=== PATIENT | male | born 1960 | race Caucasian/White ===

== ENCOUNTER 2021-12-14 10:13 | Emergency (ER) | payer OTHER ==
--- NOTE | 2021-12-14 11:36 | XRAY ---
Indication: Pain 2 weeks. No acute injury. Comparison: None 3 view left shoulder demonstrates osteopenia, mild AC degenerative arthropathy, tiny left lung calcified granuloma, and tortuous descending aorta. No other bony, articular, or soft tissue abnormalities.
--- NOTE | 2021-12-14 12:07 | ERPHSYRPT ---
- History of Present Illness Time Seen by Provider: 12/14/21 11:30 Source: patient Exam Limitations: no limitations Patient Subjective Stated Complaint: Left shoulder pain Triage Nursing Assessment: Patient ambulated back to ED and transferred self to bed. Patient A+Ox 3. Patient's skin pink, warm and dry. Patient complains of left shoulder pain 5/10 that started 3 weeks ago. Patient denies injury or trauma to area. No bruising or visible injuries noted. Physician History: Patient is a 61-year-old male presents to our ED with complaints of left shoulder pain. Shoulder pain has been ongoing for approximately 3 weeks. 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 No trauma. No neck pain. No upper extremity numbness tingling or weakness. Pain is localized. No radiation. Pain worse with movement and palpation. Pain improved with rest. Patient voices no other complaints or concerns at this time. Portions of this note were created with voice recognition technology. There may be grammatical, spelling, punctuation or sound alike errors Occurred: other (3 weeks) Method of Injury: unknown Quality: intermittent Severity of Pain-Max: moderate Severity of Pain-Current: mild Extremities Pain Location: shoulder: left Modifying Factors: Improves With: movement Associated Symptoms: none Allergies/Adverse Reactions: No Known Drug Allergies Allergy (Unverified 12/14/21 11:12) Home Medications: No Reportable Medications [No Reported Medications] 12/14/21 [History] Hx Influenza Vaccination/Date Given: No Hx Pneumococcal Vaccination/Date Given: No Immunizations Up to Date: Yes Travel Risk - International Travel Have you traveled outside of the country in past 3 weeks: No - Coronavirus Screening Are you exhibiting any of the following symptoms?: No Close contact with a COVID-19 positive Pt in past 14-21 Days: No - Vaccine Status Have you recieved a Covid-19 vaccination: No - Review of Systems Constitutional: No Symptoms, No Fever, No Chills Eyes: No Symptoms Ears, Nose, & Throat: No Symptoms Respiratory: No Symptoms, No Cough, No Dyspnea Cardiac: No Symptoms, No Chest Pain, No Edema, No Syncope Abdominal/Gastrointestinal: No Symptoms, No Abdominal Pain, No Nausea, No Vomiting, No Diarrhea Genitourinary Symptoms: No Symptoms, Penile Discharge, No Dysuria Musculoskeletal: No Back Pain, No Neck Pain Skin: No Symptoms, No Rash Neurological: No Symptoms, No Dizziness, No Focal Weakness, No Sensory Changes Psychological: No Symptoms Endocrine: No Symptoms Hematologic/Lymphatic: No Symptoms Immunological/Allergic: No Symptoms All Other Systems: Reviewed and Negative - Past Medical History Pertinent Past Medical History: Yes Neurological History: No Pertinent History ENT History: No Pertinent History Cardiac History: Hypertension Respiratory History: No Pertinent History Endocrine Medical History: Diabetes Type II Musculoskeletal History: No Pertinent History GI Medical History: No Pertinent History History: No Pertinent History Psycho-Social History: No Pertinent History Male Reproductive Disorders: No Pertinent History - Past Surgical History Past Surgical History: No Neuro Surgical History: No Pertinent History Cardiac: No Pertinent History Respiratory: No Pertinent History Gastrointestinal: No Pertinent History Genitourinary: No Pertinent History Musculoskeletal: No Pertinent History Male Surgical History: No Pertinent History - Social History Smoking Status: Current every day smoker How long have you smoked: years Exposure to second hand smoke: Yes Drug Use: none Patient Lives Alone: No - Nursing Vital Signs Nursing Vital Signs: Initial Vital Signs Temperature 97.6 F 12/14/21 11:14 Pulse Rate 88 12/14/21 11:14 Respiratory Rate 18 12/14/21 11:14 Blood Pressure 175/98 12/14/21 11:14 O2 Sat by Pulse Oximetry 97 12/14/21 11:14 Pain Scale Pain Intensity 5 - Physical Exam General Appearance: no apparent distress, alert Eyes, Ears, Nose, Throat Exam: moist mucous membranes Neck Exam: non-tender, supple Cardiovascular/Respiratory Exam: chest non-tender, normal breath sounds, regular rate/rhythm, no respiratory distress Abdominal Exam: non-tender, No guarding Back Exam: normal inspection, No vertebral tenderness Shoulder Exam: normal inspection, soft tissue tenderness Elbow/Forearm Exam: normal inspection Wrist Exam: normal inspection Hand Exam: normal inspection Neuro/Tendon Exam: normal sensation, normal motor functions Mental Status Exam: alert, oriented x 3, cooperative Skin Exam: normal color, warm, dry SpO2 Interpretation: normal SpO2: 97 O2 Delivery: Room Air - Course Nursing assessment & vital signs reviewed: Yes - Radiology Exams Shoulder X-ray Interpretation: Interpreted by me Ordered Tests: Active Orders 24 hr Category Date Time Status SHOULDER Stat Exams 12/14/21 11:26 Completed - Progress Progress: improved Progress Note: Patient reassessed. Patient is now comfortable. A sling was applied to the lef t shoulder. Patient received IM Toradol. A referral to the orthopedic clinic was completed. Patient will follow up tomorrow as discussed. X-ray negative for fracture dislocation. However there was some AC arthritis observed. No indication for further work-up at this time. The involved extremity is neurovascular intact distally. Patient is a local owner operator truck driver. This required turning a large steering wheel against resistance. Patient's shoulder pain may partially be due to overutilization. Portions of this note were created with voice recognition technology. There may be grammatical, spelling, punctuation or sound alike errors 12/14/21 12:40 Counseled pt/family regarding: diagnosis, need for follow-up, rad results - Departure Departure Disposition: Home Clinical Impression: Shoulder pain, left, Osteopenia determined by x-ray, AC (acromioclavicular) arthritis, left lung granuloma Condition: Stable Critical Care Time: No Referrals: LUIS RODRIGUEZ [Primary Care Provider] - Follow up/PCP as directed Additional Instructions: Discharge/Care Plan JOSE JUANSHAWNA was seen on 12/14/21 in the Emergency Room. The patient was counseled regarding Diagnosis,Lab results, Imaging studies, need for follow up and when to return to the Emergency Room. Prescriptions given: Discharge Note I have spoken with the patient and/or caregivers. I have explained the patient's condition, diagnosis and treatment plan based on the information available to me at this time. I have answered the patient's and/or caregiver's questions and addressed any concerns. The patient and/or caregivers have as good understanding of the patient's diagnosis, condition and treatment plan as can be expected at this point. The vital signs have been stable. The patient's condition is stable and appropriate for discharge from the emergency department. The patient will pursue further outpatient evaluation with the primary care physician or other designated or consulting physician as outlined in the discharge instructions. The patient and/or caregivers are agreeable to this plan of care and follow-up instructions have been explained in detail. The patient and/or caregivers have received these instruction. The patient/and or caregivers are aware that any significant change in condition or worsening of symptoms should prompt an immediate return to this or the closest emergency department or call 911. Outpatient Orders: Ortho Referral Time Frame: 1 Day, Facility: [facility]osp, Location: ORTHO CLINIC
[2021-12-14] MEDS ORDERED: TORAdol 30 mg Injection IM ONE (12:21)
[2021-12-14 12:24] VITALS: BP 168/90; PULSE 90
[2021-12-14] MEDS ORDERED: TORAdol 30 mg Injection ONE (12:24)
[2021-12-14 12:41] VITALS: O2SAT 97
== END 2021-12-14 12:53 | disposition home or self-care (01) ==
LOC: ED 10:13
DX: M19.012 Primary osteoarthritis, left shoulder (principal); M25.512 Pain in left shoulder; M85.812 Other specified disorders of bone density and structure, left shoulder; J84.10 Pulmonary fibrosis, unspecified; I10 Essential (primary) hypertension; E11.9 Type 2 diabetes mellitus without complications; Z72.0 Tobacco use; Z28.310 Unvaccinated for COVID-19
CPT/HCPCS: 73030; 96372; 99283; J1885

== ENCOUNTER 2024-02-13 11:27 | Emergency (ER) | payer OTHER ==
--- NOTE | 2024-02-13 11:37 | ERPHSYRPT ---
- History of Present Illness Time Seen by Provider: 02/13/24 11:37 Source: patient, family Exam Limitations: no limitations Physician History: This is a an obese 63-year-old white male patient of Dr. Palafox who presents to the emergency department by private vehicle escorted by his significant other with the complaint of painful breathing/chest pain. He was recently diagnosed with pneumonia and spent the last week and [facility] at [facility]. He was discharged to home with a prescription of Augmentin. He states he is just not getting any better. Patient has a history of diabetes, coronary artery disease, obesity and chronic atrial fibrillation on diltiazem and Eliquis. He has not had a fever that has been measured. Timing/Duration: day(s) (Several days), worse Severity: moderate Allergies/Adverse Reactions: No Known Drug Allergies Allergy (Verified 02/13/24 11:35) Home Medications: Amoxicillin/Potassium Clav [Amox Tr-K Clv 875-125 mg Tab] 1 each PO BID 02/13/24 [History] Apixaban [Eliquis] 5 mg PO BID 02/13/24 [History] Atorvastatin Calcium 10 mg PO DAILY 02/13/24 [History] Empagliflozin [Jardiance] 10 mg PO DAILY 02/13/24 [History] Glimepiride 2 mg [Amaryl 2 MG] 2 mg PO DAILY 02/13/24 [History] Metformin HCl 500 mg [Glucophage 500 MG] 1,000 mg PO BIDWM 02/13/24 [History] dilTIAZem HCL [Diltiazem ER] 360 mg PO DAILY 02/13/24 [History] Hx Influenza Vaccination/Date Given: No Hx Pneumococcal Vaccination/Date Given: No Travel Risk - International Travel Have you traveled outside of the country in past 3 weeks: No - Emerging Infectious Disease Are you exhibiting symptoms associated with any current EIDs: Yes Symptoms: Shortness of Breath (Painful breathing) - Review of Systems Constitutional: No Symptoms Eyes: No Symptoms Ears, Nose, & Throat: No Symptoms Cardiac: Chest Pain (Painful respirations) Abdominal/Gastrointestinal: No Symptoms Genitourinary Symptoms: No Symptoms Musculoskeletal: No Symptoms Skin: No Symptoms Neurological: No Symptoms Psychological: No Symptoms Endocrine: No Symptoms Hematologic/Lymphatic: No Symptoms Immunological/Allergic: No Symptoms All Other Systems: Reviewed and Negative - Past Medical History Pertinent Past Medical History: Yes Neurological History: No Pertinent History ENT History: No Pertinent History Cardiac History: Hypertension Respiratory History: No Pertinent History Endocrine Medical History: Diabetes Type II Musculoskeletal History: No Pertinent History GI Medical History: No Pertinent History History: No Pertinent History Psycho-Social History: No Pertinent History Male Reproductive Disorders: No Pertinent History - Past Surgical History Past Surgical History: No Neuro Surgical History: No Pertinent History Cardiac: No Pertinent History Respiratory: No Pertinent History Gastrointestinal: No Pertinent History Genitourinary: No Pertinent History Musculoskeletal: No Pertinent History Male Surgical History: No Pertinent History - Social History Smoking Status: Current every day smoker How long have you smoked: years Exposure to second hand smoke: Yes Drug Use: none Patient Lives Alone: No - Nursing Vital Signs Nursing Vital Signs: Initial Vital Signs Pulse Rate 99 H 02/13/24 11:30 Respiratory Rate 16 02/13/24 11:30 Blood Pressure 132/87 02/13/24 11:30 O2 Sat by Pulse Oximetry 93 L 02/13/24 11:30 Pain Scale Pain Intensity 3 - Physical Exam General Appearance: no apparent distress, alert, anxiety, obese Eye Exam: PERRL/EOMI, eyes nml inspection Ears, Nose, Throat Exam: normal ENT inspection, moist mucous membranes Neck Exam: normal inspection, non-tender, supple, full range of motion Respiratory Exam: normal breath sounds, lungs clear, airway intact, No chest tenderness, No respiratory distress, No wheezing Cardiovascular Exam: irregular Gastrointestinal/Abdomen Exam: soft, normal bowel sounds, No tenderness Rectal Exam: not done Back Exam: normal inspection, normal range of motion, No CVA tenderness, No vertebral tenderness Extremity Exam: normal inspection, normal range of motion, pelvis stable Neurologic Exam: alert, oriented x 3, cooperative, nutrition aides teacher II-XII nml as tested, nml cerebellar function, nml station & gait, sensation nml Skin Exam: normal color, warm, dry Lymphatic Exam: No adenopathy SpO2 Interpretation: normal O2 Delivery: Room Air - Course Nursing assessment & vital signs reviewed: Yes EKG Interpreted by Me: RATE (93), A-fib, NORMAL AXIS, NORMAL INTERVALS, NORMAL QRS, Other (No acute ischemia on today's twelve-lead EKG. QTc is 438) Ordered Tests: Active Orders 24 hr Category Date Time Status EKG-ER Only STAT Care 02/13/24 11:38 Active IV Insertion STAT Care 02/13/24 11:38 Active Pulse Oximetry (ED) STAT Care 02/13/24 11:38 Active CHEST WITHOUT CONTRAST [CT] Stat Exams 02/13/24 11:38 Completed BLOOD CULTURE Stat Lab 02/13/24 12:02 Received CBC W DIFF Stat Lab 02/13/24 11:54 Completed CMP Stat Lab 02/13/24 11:54 Completed Lactic Acid Stat Lab 02/13/24 11:43 Completed Lactic Acid Stat Lab 02/13/24 13:47 Received MAGNESIUM Stat Lab 02/13/24 11:54 Completed NT PRO BNPII Stat Lab 02/13/24 11:54 Completed TROPONIN Q4H Lab 02/13/24 11:54 Completed TROPONIN Q4H Lab 02/13/24 14:30 Completed TROPONIN Q4H Lab 02/13/24 19:45 Ordered Medication Summary Discontinued Medications Generic Name Dose Route Start Last Admin Trade Name Freq PRN Reason Stop Dose Admin Furosemide 40 mg 02/13/24 13:28 02/13/24 13:33 Furosemide 40 Mg/4 Ml Vial IV 02/13/24 13:29 40 mg STAT ONE Administration Furosemide Confirm 02/13/24 13:32 Furosemide 40 Mg/4 Ml Vial Administered 02/13/24 13:33 Dose 40 mg .ROUTE .STK-MED ONE Sodium Chloride 500 mls @ 500 mls/hr 02/13/24 12:55 02/13/24 14:22 Sodium Chloride 0.9% 500 Ml IV 02/13/24 13:54 Infused .Q1H ONE Infusion Sodium Chloride Confirm 02/13/24 12:59 Sodium Chloride 0.9% 500 Ml Administered 02/13/24 13:00 Dose 500 mls @ ud IV .STK-MED ONE Lab/Rad Data: Laboratory Result Diagrams 02/13/24 11:54 02/13/24 11:54 Laboratory Results 02/13/24 02/13/24 02/13/24 Range/Units 14:30 11:54 11:54 WBC (4.23-9.07) x10^3/uL RBC (4.63-6.08) x10^6/uL Hgb (13.7-17.5) g/dL Hct (40.1-51.0) % MCV (79.0-92.2) fL MCH (25.7-32.2) pg MCHC (32.3-36.5) g/dL RDW (11.6-14.4) % Plt Count (163-337) x10^3/uL MPV (9.4-12.4) fL Gran % (34.0-67.9) % Immature Gran % (Auto) (0.001-0.429) % Nucleat RBC Rel Count (0.00-0.2) % Eos # (Auto) (0.04-0.54) x10^3/uL Immature Gran # (Auto) (0.001-0.031) x10^3u/L Absolute Lymphs (auto) (1.32-3.57) x10^3/uL Absolute Monos (auto) (0.30-0.82) x10^3/uL Absolute Nucleated RBC (0.00-0.012) x10^3u/L Lymphocytes % (21.8-53.1) % Monocytes % (5.3-12.2) % Eosinophils % (0.8-7.0) % Basophils % (0.2-1.2) % Absolute Granulocytes (1.78-5.38) x10^3/uL Basophils # (0.01-0.08) x10^3/uL Sodium (135-145) mmol/L Potassium (3.5-5.1) mmol/L Chloride (98-107) mmol/L Carbon Dioxide (22-30) mmol/L Anion Gap (5-15) MEQ/L BUN (9-20) mg/dL Creatinine (0.66-1.25) mg/dL Estimated GFR ML/MIN Glucose (74-106) mg/dL Lactic Acid (0.4-2.0) Calcium (8.4-10.2) mg/dL Magnesium (1.6-2.3) mg/dL Total Bilirubin (0.2-1.3) mg/dL AST (17-59) U/L ALT (0-50) U/L Alkaline Phosphatase (38-126) U/L Troponin I < 0.012 < 0.012 (0.000-0.033) ng/mL NT-Pro-B Natriuret Pep (<300) pg/mL Serum Total Protein (6.3-8.2) g/dL Albumin (3.5-5.0) g/dL Influenza Type A Ag NEGATIVE (NEGATIVE) Influenza Type B Ag NEGATIVE (NEGATIVE) RSV (PCR) NEGATIVE (NEGATIVE) SARS-CoV-2 (PCR) NEGATIVE (NEGATIVE) 02/13/24 02/13/24 02/13/24 Range/Units 11:54 11:54 11:43 WBC 16.2 H (4.23-9.07) x10^3/uL RBC 5.53 (4.63-6.08) x10^6/uL Hgb 15.8 (13.7-17.5) g/dL Hct 47.0 (40.1-51.0) % MCV 85.0 (79.0-92.2) fL MCH 28.6 (25.7-32.2) pg MCHC 33.6 (32.3-36.5) g/dL RDW 13.3 (11.6-14.4) % Plt Count 373 H (163-337) x10^3/uL MPV 10.6 (9.4-12.4) fL Gran % 68.6 H (34.0-67.9) % Immature Gran % (Auto) 0.6 H (0.001-0.429) % Nucleat RBC Rel Count 0.0 (0.00-0.2) % Eos # (Auto) 0.28 (0.04-0.54) x10^3/uL Immature Gran # (Auto) 0.10 H (0.001-0.031) x10^3u/L Absolute Lymphs (auto) 3.13 (1.32-3.57) x10^3/uL Absolute Monos (auto) 1.51 H (0.30-0.82) x10^3/uL Absolute Nucleated RBC 0.00 (0.00-0.012) x10^3u/L Lymphocytes % 19.3 L (21.8-53.1) % Monocytes % 9.3 (5.3-12.2) % Eosinophils % 1.7 (0.8-7.0) % Basophils % 0.5 (0.2-1.2) % Absolute Granulocytes 11.11 H (1.78-5.38) x10^3/uL Basophils # 0.08 (0.01-0.08) x10^3/uL Sodium 137 (135-145) mmol/L Potassium 4.6 (3.5-5.1) mmol/L Chloride 106 (98-107) mmol/L Carbon Dioxide 20 L (22-30) mmol/L Anion Gap 16.0 H (5-15) MEQ/L BUN 19 (9-20) mg/dL Creatinine 0.71 (0.66-1.25) mg/dL Estimated GFR 102.5 ML/MIN Glucose 186 H (74-106) mg/dL Lactic Acid 2.2 H (0.4-2.0) Calcium 9.2 (8.4-10.2) mg/dL Magnesium 2.1 (1.6-2.3) mg/dL Total Bilirubin 0.70 (0.2-1.3) mg/dL AST 28 (17-59) U/L ALT 25 (0-50) U/L Alkaline Phosphatase 46 (38-126) U/L Troponin I (0.000-0.033) ng/mL NT-Pro-B Natriuret Pep 2260 (<300) pg/mL Serum Total Protein 6.3 (6.3-8.2) g/dL Albumin 3.5 (3.5-5.0) g/dL Influenza Type A Ag (NEGATIVE) Influenza Type B Ag (NEGATIVE) RSV (PCR) (NEGATIVE) SARS-CoV-2 (PCR) (NEGATIVE) - Progress Progress Note: 02/13/24 11:44 Medical decision making and the assignment of moderate complexity to this patient's medical issue today is based on review of the patient's past medical history, review of the patient's medication list, reviewed patient drug allergy list, history present illness and physical findings on examination. The workup in this patient includes placement of intravenous line, CBC, CMP, magnesium level, blood cultures, viral studies, CT scan of the chest without contrast twelve-lead EKG and troponin level. Differential diagnosis includes myocardial infarction, chest wall pain, pneumonia, viral illness, other arrhythmia. I did not order D-dimer as this patient is anticoagulated on Eliquis. 02/13/24 13:26 I interpreted the patient's laboratory data results. The laboratory data results show the patient having a leukocytosis and a mildly elevated lactic acid. We will provide the patient with a bolus of crystalloid solution intravenously. No other acute or emergent findings based on the laboratory data results. The CT scan of the chest without contrast shows small pericardial effusion/thickening. Echocardiogram if clinically indicated. There is mild diffuse pulmonary emphysema. There is moderate right with minimal left base hemphill bsegmental atelectasis/scarring. There is a small hiatal hernia. There is no evidence of infiltrate or effusions. 02/13/24 14:33 I reexamined the patient. Patient states he is feeling better and he states he is "ready to get out of here". I asked him to wait for the repeat twelve-lead EKG and troponin level. If these show nothing acute or emergent, we will discharge him from the emergency department and he will follow-up at his scheduled appointment with his primary care provider. 02/13/24 15:14 I interpreted the patient's repeat troponin level and this is again normal. I also interpreted the repeat twelve-lead EKG performed at 1436 on 02/13/2024. Patient's heart rate is 84 bpm and is in normal sinus rhythm. QTc is 425. There is no evidence of any acute ischemia on this repeat twelve-lead EKG. Counseled pt/family regarding: lab results, diagnosis, rad results Medical Desision Making - Independent Historian Additional History obtained from: Spouse - Diagnostic Testing Diagnostic test were ordered, analyzed, and reviewed by me: Yes Radiological Interpretation: Reviewed by me, Teleradiologist Report - Risk of complications Low Risk: Low risk of morbidity from additional dx testing or treatment - Departure Departure Disposition: Home Clinical Impression: Leukocytosis Condition: Stable Critical Care Time: No Referrals: SAJAN PALAFOX MD [Primary Care Provider] - Follow up/PCP as directed Additional Instructions: Drink plenty of fluids. Take your medications including your antibiotic as prescribed. After discharge from the emergency department today, proceed to your primary care providers schedule appointment time.
[2024-02-13 11:50] VITALS: TEMP 98.6
[2024-02-13 12:18] LABS: Absolute Neutrophil Ct (ANC) 11.11 x10^3/uL (1.78-5.38); BASOPHIL % 0.5 % (0.2-1.2); Basophil (Absolute #) 0.08 x10^3/uL (0.01-0.08); Eosinophil % 1.7 % (0.8-7.0); Eosinophil (Absolute #) 0.28 x10^3/uL (0.04-0.54); Hemoglobin 15.8 g/dL (13.7-17.5); IMMATURE GRAN % 0.6 % (0.001-0.429); Lymphocyte (Absolute #) 3.13 x10^3/uL (1.32-3.57); Lymphocytes % 19.3 % (21.8-53.1); Mean Corpuscular Hemoglobin 28.6 pg (25.7-32.2); Mean Corpuscular Hgb Concent. 33.6 g/dL (32.3-36.5); Mean Platelet Volume 10.6 fL (9.4-12.4); Monocyte (Absolute #) 1.51 x10^3/uL (0.30-0.82); Monocytes % 9.3 % (5.3-12.2); Neutrophil % 68.6 % (34.0-67.9); Platelet Count 373 x10^3/uL (163-337); Red Blood Count 5.53 x10^6/uL (4.63-6.08); Red Cell Distribution Width 13.3 % (11.6-14.4); White Blood Count 16.2 x10^3/uL (4.23-9.07)
[2024-02-13 12:44] LABS: ALBUMIN 3.5 g/dL (3.5-5.0); BILIRUBIN,TOTAL 0.7 mg/dL (0.2-1.3); Calcium 9.2 mg/dL (8.4-10.2); Creatinine 1 0.71 mg/dL (0.66-1.25); EST GLOMERULAR FILTRATION RATE 102.5 ML/MIN; MAGNESIUM 2.1 mg/dL (1.6-2.3); Potassium 4.6 mmol/L (3.5-5.1); Total Protein 6.3 g/dL (6.3-8.2)
[2024-02-13] MEDS ORDERED: Sodium Chloride 0.9% 500 ML 500 ML IV ONE (12:59)
[2024-02-13] MEDS: Sodium Chloride 0.9% 500 ML 500 ML IV ONE (12:59)
[2024-02-13 13:02] LABS: INFLUENZA A NEGATIVE (NEGATIVE); INFLUENZA B NEGATIVE (NEGATIVE); RESPIRATORY SYNCTIAL VIRUS NEGATIVE (NEGATIVE); SARS-CoV-2 Xpert Express NEGATIVE (NEGATIVE)
--- NOTE | 2024-02-13 13:05 | XRAY ---
Indication: Painful breathing. Multiple contiguous axial images obtained through the chest without contrast. Comparison: None Lungs demonstrate mild diffuse pulmonary emphysema and moderate right and minimal left base subsegmental atelectasis/scarring. Small lateral left lower lobe subpleural calcified granuloma. No infiltrate or effusion. Heart not enlarged with small pericardial effusion/thickening. Aorta minimally arteriosclerotic without aneurysm. Tiny mediastinal and bilateral hilar calcified nodes. Small hiatal hernia. Bony thorax intact with minimal degenerative changes throughout the spine and tiny T7-T10 Schmorl nodes. Limited upper abdomen demonstrates 9 mm left lobe hepatic cyst, nonobstructing left renal punctate calculus, incompletely visualized 1.8 cm left mid renal exophytic cyst, and tiny hepatic/splenic calcified granulomas. Impression: 1. Small pericardial effusion/thickening. Echocardiogram may yield further information if clinically warranted. 2. Chronic findings including pulmonary emphysema, atelectasis/scarring, arteriosclerotic disease, hiatal hernia, chronic bony findings, hepatic cyst, incompletely visualized right renal cyst, left renal punctate calculus, chronic bony findings, and old granulomatous disease.
[2024-02-13] MEDS ORDERED: Lasix 40 MG/4 ML ONE (13:32)
[2024-02-13] MEDS: Lasix 40 MG/4 ML IV ONE (13:33)
[2024-02-13 15:05] VITALS: BP 111/64; PULSE 85; RESP 22; O2SAT 89
== END 2024-02-13 15:18 | disposition home or self-care (01) ==
LOC: ED 11:27
DX: D72.829 Elevated white blood cell count, unspecified (principal); R07.9 Chest pain, unspecified; R06.00 Dyspnea, unspecified; E11.9 Type 2 diabetes mellitus without complications; I10 Essential (primary) hypertension; Z79.01 Long term (current) use of anticoagulants; Z79.84 Long term (current) use of oral hypoglycemic drugs; Z79.899 Other long term (current) drug therapy; Z72.0 Tobacco use
CPT/HCPCS: 0241U; 36000; 36415; 71250; 80053; 83605; 83735; 83880; 84484; 85025; 87040; 93005; 94760; 96374; 99284; J1940

== ENCOUNTER 2024-07-19 18:39 | Emergency (ER) | payer MEDICARE, OTHER ==
[2024-07-19 18:55] VITALS: TEMP 98
--- NOTE | 2024-07-19 19:36 | ERPHSYRPT ---
- History of Present Illness Time Seen by Provider: 07/19/24 19:25 Historian: patient, other (significant other) Patient Subjective Stated Complaint: C/O pain to right mid back for a few weeks. Patient states he wants to get it checked out before he starts his new job on Saturday and thought he would just have it checked out here tonight while his girlfriend was being seen in the ER. Triage Nursing Assessment: Patient ambulated back to ER. He is alert and oriented. No SOB. NO bruising to reported area of pain but is tender to touch. GREGORY WNL. SKin tone normal. Physician History: Pt states for the past 3 weeks he has had constant achy 7/10 left upper anterior chest pain radiating to the left scapula; right lateral rib pain for the past 3 days after bending over a metal bar in his shed lifting something. Pt denies shortness of air, fever, abdominal pain, nausea, vomiting, diarrhea. Aspirin Treatment Today: 81 mg x 4, provided by ED Allergies/Adverse Reactions: No Known Drug Allergies Allergy (Verified 07/19/24 18:45) Home Medications: Amoxicillin/Potassium Clav [Amox Tr-K Clv 875-125 mg Tab] 1 each PO BID 02/13/24 [History] Apixaban [Eliquis] 5 mg PO BID 02/13/24 [History] Atorvastatin Calcium 10 mg PO DAILY 02/13/24 [History] Empagliflozin [Jardiance] 10 mg PO DAILY 02/13/24 [History] Glimepiride 2 mg [Amaryl 2 MG] 2 mg PO DAILY 02/13/24 [History] Metformin HCl 500 mg [Glucophage 500 MG] 1,000 mg PO BIDWM 02/13/24 [History] dilTIAZem HCL [Diltiazem ER] 360 mg PO DAILY 02/13/24 [History] Hx Tetanus, Diphtheria Vaccination/Date Given: Yes Hx Influenza Vaccination/Date Given: No Hx Pneumococcal Vaccination/Date Given: No Immunizations Up to Date: Yes Travel Risk - International Travel Have you traveled outside of the country in past 3 weeks: No - Emerging Infectious Disease Are you exhibiting symptoms associated with any current EIDs: No Symptoms: Shortness of Breath (Painful breathing) Comment: lung pain, pneumonia - Review of Systems Constitutional: No Fever Ears, Nose, & Throat: No Throat Pain Respiratory: No Dyspnea Cardiac: Chest Pain Abdominal/Gastrointestinal: No Abdominal Pain, No Nausea, No Vomiting, No Diarrhea Musculoskeletal: Back Pain Neurological: No Headache - Past Medical History Pertinent Past Medical History: Yes Neurological History: No Pertinent History ENT History: No Pertinent History Cardiac History: Hypertension Respiratory History: No Pertinent History Endocrine Medical History: Diabetes Type II Musculoskeletal History: No Pertinent History GI Medical History: No Pertinent History History: No Pertinent History Psycho-Social History: No Pertinent History Male Reproductive Disorders: No Pertinent History - Past Surgical History Past Surgical History: Yes Neuro Surgical History: No Pertinent History Cardiac: No Pertinent History Respiratory: No Pertinent History Gastrointestinal: No Pertinent History Genitourinary: No Pertinent History Musculoskeletal: No Pertinent History Male Surgical History: No Pertinent History - Social History Smoking Status: Current every day smoker How long have you smoked: years Exposure to second hand smoke: Yes Drug Use: methamphetamines - Social Determinants of Health Will the patient participate in the screening: Declined to provide - Nursing Vital Signs Nursing Vital Signs: Initial Vital Signs Temperature 98 F 07/19/24 18:47 Pulse Rate 94 H 07/19/24 18:47 Respiratory Rate 18 07/19/24 18:47 Blood Pressure 165/103 07/19/24 18:47 O2 Sat by Pulse Oximetry 96 07/19/24 18:47 Pain Scale Pain Intensity [] 6 Pain Intensity 6 - Physical Exam General Appearance: alert Eye Exam: PERRL/EOMI Ears, Nose, Throat Exam: TMs normal, pharynx normal Neck Exam: normal inspection Respiratory Exam: chest tenderness (mild tenderness over right lower lateral ribs without crepitus ), lungs clear, airway intact Cardiovascular Exam: normal heart sounds Gastrointestinal/Abdomen Exam: normal bowel sounds, No tenderness Back Exam: normal inspection Neurologic Exam: alert, cooperative Skin Exam: warm, dry SpO2 Interpretation: normal SpO2: 96 O2 Delivery: Room Air - Course Nursing assessment & vital signs reviewed: Yes EKG Interpreted by Me: RATE (88), Sinus Rhythm, NORMAL AXIS, Other (QTc = 433) - CT Exams Chest CT Interpretation: Tele-radiologist Report (See rest of report.), No PE Ordered Tests: Active Orders 24 hr Category Date Time Status Machine Room Engineer STAT Care 07/19/24 19:41 Active EKG-ER Only STAT Care 07/19/24 19:41 Active Pulse Oximetry (ED) STAT Care 07/19/24 19:41 Active CHEST WITH CONTRAST [CT] Stat Exams 07/19/24 21:18 Completed AMYLASE Stat Lab 07/19/24 19:40 Completed CBC W DIFF Stat Lab 07/19/24 19:40 Completed CMP Stat Lab 07/19/24 19:40 Completed LIPASE Stat Lab 07/19/24 19:40 Completed MAGNESIUM Stat Lab 07/19/24 19:40 Completed TROPONIN Q4H Lab 07/19/24 19:45 Completed TROPONIN Q4H Lab 07/19/24 23:45 Ordered TROPONIN Q4H Lab 07/20/24 03:45 Ordered UA W/RFX UR CULTURE Stat Lab 07/19/24 21:00 Completed Urine Triage Profile Stat Lab 07/19/24 21:00 Completed Medication Summary Generic Name Dose Route Start Last Admin Trade Name Freq PRN Reason Stop Dose Admin Sodium Chloride 1,000 mls @ 100 mls/hr 07/19/24 19:45 07/19/24 19:44 Sodium Chloride 0.9% 1000 Ml IV 08/18/24 19:44 100 mls/hr .Q10H FLAKITO Administration Discontinued Medications Generic Name Dose Route Start Last Admin Trade Name Freq PRN Reason Stop Dose Admin Morphine Sulfate 2 mg 07/19/24 19:40 07/19/24 19:52 Morphine Sulfate 2 Mg/Ml Inj IV 07/19/24 19:41 2 mg STAT ONE Administration Morphine Sulfate Confirm 07/19/24 19:43 Morphine Sulfate 2 Mg/Ml Inj Administered 07/19/24 19:44 Dose 2 mg .ROUTE .STK-MED ONE Ondansetron HCl 4 mg 07/19/24 19:40 07/19/24 19:52 Ondansetron Hcl 4 Mg/2 Ml Vial IV 07/19/24 19:41 4 mg STAT ONE Administration Ondansetron HCl Confirm 07/19/24 19:42 Ondansetron Hcl 4 Mg/2 Ml Vial Administered 07/19/24 19:43 Dose 4 mg .ROUTE .STK-MED ONE Lab/Rad Data: Laboratory Result Diagrams 07/19/24 19:40 07/19/24 19:40 Laboratory Results 07/19/24 07/19/24 07/19/24 Range/Units 21:00 21:00 19:45 WBC (4.23-9.07) x10^3/uL RBC (4.63-6.08) x10^6/uL Hgb (13.7-17.5) g/dL Hct (40.1-51.0) % MCV (79.0-92.2) fL MCH (25.7-32.2) pg MCHC (32.3-36.5) g/dL RDW (11.6-14.4) % Plt Count (163-337) x10^3/uL MPV (9.4-12.4) fL Gran % (34.0-67.9) % Immature Gran % (Auto) (0.001-0.429) % Nucleat RBC Rel Count (0.00-0.2) % Eos # (Auto) (0.04-0.54) x10^3/uL Immature Gran # (Auto) (0.001-0.031) x10^3u/L Absolute Lymphs (auto) (1.32-3.57) x10^3/uL Absolute Monos (auto) (0.30-0.82) x10^3/uL Absolute Nucleated RBC (0.00-0.012) x10^3u/L Lymphocytes % (21.8-53.1) % Monocytes % (5.3-12.2) % Eosinophils % (0.8-7.0) % Basophils % (0.2-1.2) % Absolute Granulocytes (1.78-5.38) x10^3/uL Basophils # (0.01-0.08) x10^3/uL Sodium (135-145) mmol/L Potassium (3.5-5.1) mmol/L Chloride (98-107) mmol/L Carbon Dioxide (22-30) mmol/L Anion Gap (5-15) MEQ/L BUN (9-20) mg/dL Creatinine (0.66-1.25) mg/dL Estimated GFR ML/MIN Glucose (74-106) mg/dL Calcium (8.4-10.2) mg/dL Magnesium (1.6-2.3) mg/dL Total Bilirubin (0.2-1.3) mg/dL AST (17-59) U/L ALT (0-50) U/L Alkaline Phosphatase (38-126) U/L Troponin I < 0.012 (0.000-0.033) ng/mL Serum Total Protein (6.3-8.2) g/dL Albumin (3.5-5.0) g/dL Amylase (30-110) U/L Lipase (23-300) U/L Urine Color Yellow (Yellow) Urine Appearance Clear (Clear) Urine pH 5.5 (4.6-8.0) Ur Specific [place] >=1.030 A (1.005-1.030) Urine Protein Negative (Negative) Urine Glucose (UA) >=1000 A (Negative) mg/dL Urine Ketones Negative (Negative) Urine Blood Negative (Negative) Urine Nitrite Negative (Negative) Urine Bilirubin Negative (Negative) Urine Urobilinogen 0.2 (0.2) mg/dL Ur Leukocyte Esterase Negative (Negative) Urine Microscopic RBC 0-2 (0-5) /HPF Urine Microscopic WBC 0-2 (0-5) /HPF Ur Epithelial Cells Rare (None Seen) /HPF Urine Bacteria None Seen (None Seen) /HPF Urine Culture Reflexed NO (NO) Urine Opiates Level POSITIVE A (NEGATIVE) Ur Methadone NEGATIVE (NEGATIVE) Urine Barbiturates NEGATIVE (NEGATIVE) Ur Phencyclidine (PCP) NEGATIVE (NEGATIVE) Urine Amphetamine POSITIVE A (NEGATIVE) U Benzodiazepine Level NEGATIVE (NEGATIVE) Urine Cocaine NEGATIVE (NEGATIVE) Urine Marijuana (THC) NEGATIVE (NEGATIVE) 07/19/24 07/19/24 Range/Units 19:40 19:40 WBC 11.4 H (4.23-9.07) x10^3/uL RBC 4.92 (4.63-6.08) x10^6/uL Hgb 14.1 (13.7-17.5) g/dL Hct 42.7 (40.1-51.0) % MCV 86.8 (79.0-92.2) fL MCH 28.7 (25.7-32.2) pg MCHC 33.0 (32.3-36.5) g/dL RDW 13.3 (11.6-14.4) % Plt Count 305 (163-337) x10^3/uL MPV 10.6 (9.4-12.4) fL Gran % 62.7 (34.0-67.9) % Immature Gran % (Auto) 0.4 (0.001-0.429) % Nucleat RBC Rel Count 0.0 (0.00-0.2) % Eos # (Auto) 0.27 (0.04-0.54) x10^3/uL Immature Gran # (Auto) 0.05 H (0.001-0.031) x10^3u/L Absolute Lymphs (auto) 2.99 (1.32-3.57) x10^3/uL Absolute Monos (auto) 0.85 H (0.30-0.82) x10^3/uL Absolute Nucleated RBC 0.00 (0.00-0.012) x10^3u/L Lymphocytes % 26.3 (21.8-53.1) % Monocytes % 7.5 (5.3-12.2) % Eosinophils % 2.4 (0.8-7.0) % Basophils % 0.7 (0.2-1.2) % Absolute Granulocytes 7.11 H (1.78-5.38) x10^3/uL Basophils # 0.08 (0.01-0.08) x10^3/uL Sodium 137 (135-145) mmol/L Potassium 4.2 (3.5-5.1) mmol/L Chloride 102 (98-107) mmol/L Carbon Dioxide 27 (22-30) mmol/L Anion Gap 12.7 (5-15) MEQ/L BUN 18 (9-20) mg/dL Creatinine 0.75 (0.66-1.25) mg/dL Estimated GFR 100.8 ML/MIN Glucose 256 H (74-106) mg/dL Calcium 9.1 (8.4-10.2) mg/dL Magnesium 2.1 (1.6-2.3) mg/dL Total Bilirubin 0.60 (0.2-1.3) mg/dL AST 20 (17-59) U/L ALT 19 (0-50) U/L Alkaline Phosphatase 70 (38-126) U/L Troponin I (0.000-0.033) ng/mL Serum Total Protein 6.4 (6.3-8.2) g/dL Albumin 3.8 (3.5-5.0) g/dL Amylase 44 (30-110) U/L Lipase 446 H (23-300) U/L Urine Color (Yellow) Urine Appearance (Clear) Urine pH (4.6-8.0) Ur Specific [place] (1.005-1.030) Urine Protein (Negative) Urine Glucose (UA) (Negative) mg/dL Urine Ketones (Negative) Urine Blood (Negative) Urine Nitrite (Negative) Urine Bilirubin (Negative) Urine Urobilinogen (0.2) mg/dL Ur Leukocyte Esterase (Negative) Urine Microscopic RBC (0-5) /HPF Urine Microscopic WBC (0-5) /HPF Ur Epithelial Cells (None Seen) /HPF Urine Bacteria (None Seen) /HPF Urine Culture Reflexed (NO) Urine Opiates Level (NEGATIVE) Ur Methadone (NEGATIVE) Urine Barbiturates (NEGATIVE) Ur Phencyclidine (PCP) (NEGATIVE) Urine Amphetamine (NEGATIVE) U Benzodiazepine Level (NEGATIVE) Urine Cocaine (NEGATIVE) Urine Marijuana (THC) (NEGATIVE) - Progress Progress: improved Counseled pt/family regarding: lab results, diagnosis, need for follow-up, rad results Medical Desision Making - Diagnostic Testing Diagnostic test were ordered, analyzed, and reviewed by me: Yes Radiological Interpretation: Teleradiologist Report - Departure Departure Disposition: Home Clinical Impression: Chest pain, Back pain Condition: Stable Critical Care Time: No Referrals: SAJAN PALAFOX MD [Primary Care Provider] - Follow up/PCP as directed Instructions: Chest pain Additional Instructions: Follow up with private doctor tomorrow.
[2024-07-19] MEDS ORDERED: Zofran 4 MG/2 ML VIAL ONE (19:42)
[2024-07-19] MEDS ORDERED: Sodium Chloride 0.9% 1000 ML 1,000 ML ONE (19:43)
[2024-07-19] MEDS ORDERED: MORPHINE SULFATE 2 MG INJ ONE (19:43)
[2024-07-19] MEDS: Sodium Chloride 0.9% 1000 ML 1,000 ML IV SCH (19:44)
[2024-07-19] MEDS: MORPHINE SULFATE 2 MG INJ IV ONE (19:52)
[2024-07-19] MEDS: Zofran 4 MG/2 ML VIAL IV ONE (19:52)
[2024-07-19 20:23] LABS: Absolute Neutrophil Ct (ANC) 7.11 x10^3/uL (1.78-5.38); BASOPHIL % 0.7 % (0.2-1.2); Basophil (Absolute #) 0.08 x10^3/uL (0.01-0.08); Eosinophil % 2.4 % (0.8-7.0); Eosinophil (Absolute #) 0.27 x10^3/uL (0.04-0.54); Hematocrit 42.7 % (40.1-51.0); Hemoglobin 14.1 g/dL (13.7-17.5); IMMATURE GRAN # 0.05 x10^3u/L (0.001-0.031); IMMATURE GRAN % 0.4 % (0.001-0.429); Lymphocyte (Absolute #) 2.99 x10^3/uL (1.32-3.57); Lymphocytes % 26.3 % (21.8-53.1); Mean Cell Volume 86.8 fL (79.0-92.2); Mean Corpuscular Hemoglobin 28.7 pg (25.7-32.2); Mean Platelet Volume 10.6 fL (9.4-12.4); Monocyte (Absolute #) 0.85 x10^3/uL (0.30-0.82); Monocytes % 7.5 % (5.3-12.2); Neutrophil % 62.7 % (34.0-67.9); Platelet Count 305 x10^3/uL (163-337); Red Blood Count 4.92 x10^6/uL (4.63-6.08); Red Cell Distribution Width 13.3 % (11.6-14.4); White Blood Count 11.4 x10^3/uL (4.23-9.07)
[2024-07-19 20:37] LABS: ALBUMIN 3.8 g/dL (3.5-5.0); ANION GAP 12.7 MEQ/L (5-15); BILIRUBIN,TOTAL 0.6 mg/dL (0.2-1.3); Calcium 9.1 mg/dL (8.4-10.2); Creatinine 1 0.75 mg/dL (0.66-1.25); EST GLOMERULAR FILTRATION RATE 100.8 ML/MIN; MAGNESIUM 2.1 mg/dL (1.6-2.3); Potassium 4.2 mmol/L (3.5-5.1); Total Protein 6.4 g/dL (6.3-8.2)
[2024-07-19 21:14] LABS: Appearance Clear (Clear); Leukocyte Esterase Negative (Negative); Nitrite Negative (Negative); Ph 5.5 (4.6-8.0); Specific Gravity >=1.030 (1.005-1.030)
[2024-07-19 21:15] LABS: Bacteria None Seen /HPF (None Seen); Bilirubin Negative (Negative); Blood Negative (Negative); Epithelial Cells Rare /HPF (None Seen); Glucose, Urine >=1000 mg/dL (Negative); Ketones Negative (Negative); Protein,Urine Dip Negative (Negative); RBC 0-2 /HPF (0-5); Urobilinogen 0.2 mg/dL (0.2); WBC 0-2 /HPF (0-5)
[2024-07-19 21:22] LABS: Barbiturate,Urine NEGATIVE (NEGATIVE); Benzodiazepine,Urine NEGATIVE (NEGATIVE); Cocaine,Urine NEGATIVE (NEGATIVE); Methadone,Urine NEGATIVE (NEGATIVE); Opiate,Urine POSITIVE (NEGATIVE); PCP,Urine NEGATIVE (NEGATIVE); THC,Urine NEGATIVE (NEGATIVE)
[2024-07-19 22:06] LABS: Amphetamine,Urine POSITIVE (NEGATIVE)
[2024-07-19 22:13] VITALS: RESP 16
--- NOTE | 2024-07-19 22:40 | XRAY ---
CLINICAL HISTORY: CHEST PAIN COMPARISON: 02/13/[address] without contrast. TECHNIQUE: Contiguous 3.[address] images of the chest were acquired with administration of intravenous contrast. Coronal and sagittal reconstructions were obtained. One of the following dose reduction techniques were utilized for this exam: Automated exposure control, adjustment of the mA and/or kV according to patient size, and use of iterative reconstruction FINDINGS: Lungs: Paraseptal emphysema in both upper lobes and superior segments of both lower lobes. Stable 7.3 mm calcified nodule in the superior segment of the left upper lobe. Subpleural atelectasis in both lower lobes. No pleural effusion or pleural thickening. Mediastinum: No mediastinal mass or abnormal lymphadenopathy. Normal appearance of the thymus. Hilar Structures: Normal size and configuration, no enlargement. Heart and Great Vessels: Normal heart size and configuration. No pericardial effusion. Normal caliber and course of the thoracic aorta and other great vessels. No significant atherosclerosis or aneurysm. Normal enhancement of the great vessels post-contrast. Pulmonary Arteries: No evidence of pulmonary embolism. Normal size and course of the pulmonary arteries. Esophagus: Normal course and caliber. No masses or dilatation. Bones: No fractures or lytic/sclerotic lesions. Normal bone density and alignment. No evidence of rib fractures. Hemangiomas identified in the mid and lower thoracic vertebral bodies. Stable. Chest Wall: No masses or soft tissue abnormalities. Upper Abdomen: Stable hypodensity in the left liver lobe, likely cyst. Few tiny calcifications in the liver and spleen. Small hiatal hernia. Adrenal nodules Thyroid: Normal size and morphology. Partly visualized hypodense nodule within the right lobe of the thyroid gland measuring 10 mm in size. IMPRESSION: 1. No evidence of pulmonary embolism. 2. Paraseptal emphysema in both upper lobes and superior segments of both lower lobes. No significant change. 3. Stable 7.3 mm calcified nodule in the superior segment of the left upper lobe. Electronically Signed by: Todd Iverson MD. (07/19/2024 22:35:37 EDT)
[2024-07-19 22:49] VITALS: O2SAT 96
[2024-07-19 23:08] VITALS: BP 125/79; PULSE 89
[2024-07-19] MEDS ORDERED: BABY ASPIRIN 81 MG CHEW ONE (23:10)
[2024-07-19] MEDS: BABY ASPIRIN 81 MG CHEW PO ONE (23:15)
== END 2024-07-19 23:20 | disposition home or self-care (01) ==
LOC: ED 18:39
DX: R07.9 Chest pain, unspecified (principal); M54.9 Dorsalgia, unspecified; I10 Essential (primary) hypertension; E11.9 Type 2 diabetes mellitus without complications; Z79.01 Long term (current) use of anticoagulants; Z79.84 Long term (current) use of oral hypoglycemic drugs; Z79.899 Other long term (current) drug therapy; Z72.0 Tobacco use
CPT/HCPCS: 36415; 71260; 80053; 80307; 81001; 82150; 83690; 83735; 84484; 85025; 93005; 93041; 94760; 96361; 96374; 96375; 99284; 99285; J2270; J2405; A9270-GY